=== PATIENT | female | born 1945 ===

== ENCOUNTER 2017-08-23 19:35 | Emergency (ER) | payer MEDICARE, OTHER ==
[2017-08-23 19:35] VITALS: BMI 28.3
[2017-08-23 20:08] VITALS: RESP 20
[2017-08-23] MEDS ORDERED: Sodium Chloride 0.9% 1,000 ML IV ONE (21:01)
--- NOTE | 2017-08-23 21:01 | C.PDOC ---
History Of Present Illness Patient presents to the ER with a complaint of abdominal pain, nausea, vomiting , and diarrhea. Patient reports she is unable to tolerate PO. Denies fever or chills. Time Seen by Provider: 08/23/17 21:01 Chief Complaint (Nursing): GI Problem History Per: Patient History/Exam Limitations: no limitations Onset/Duration Of Symptoms: Hrs Current Symptoms Are (Timing): Still Present Severity: Moderate Pain Scale Rating Of: 4 Location Of Pain/Discomfort: Diffuse Radiation Of Pain To:: None Quality Of Discomfort: Unable To Describe Associated Symptoms: Nausea, Vomiting, Diarrhea. denies: Fever, Chills Exacerbating Factors: None Alleviating Factors: None Recent travel outside of the [place]: No Abnormal Vaginal Bleeding: No Past Medical History Reviewed: Historical Data, Nursing Documentation, Vital Signs Vital Signs: Last Vital Signs Temp 97.9 F 08/23/17 22:40 Pulse 73 08/23/17 22:40 Resp 20 08/23/17 22:40 BP 108/65 08/23/17 22:40 Pulse Ox 99 08/23/17 23:14 - Medical History PMH: Hypothyroidism Surgical History: Tonsillectomy - [facility] Procedures CLOSURE SKIN & SUBCUTANEOUS NEC (07/18/14) INSPECTION OF BLADDER, ENDO (05/26/17) REPOSITION UTERUS, PERCUTANEOUS ENDOSCOPIC APPROACH (05/26/17) REPOSITION VAGINA, PERCUTANEOUS ENDOSCOPIC APPROACH (05/26/17) RESECTION OF BI FALLOPIAN TUBE, VIA OPENING W PERC ENDO (05/26/17) RESECTION OF BILATERAL OVARIES, VIA OPENING W PERC ENDO (05/26/17) RESECTION OF CERVIX, VIA NATURAL OR ARTIFICIAL OPENING (05/26/17) RESECTION OF UTERUS, VIA OPENING W PERC ENDO (05/26/17) ROBOTIC ASSISTED PROCEDURE OF TRUNK, PERC ENDO APPROACH (05/26/17) TETANUS TOXOID ADMINIST (07/18/14) Family History: States: No Known Family Hx - Social History Hx Tobacco Use: No Hx Alcohol Use: No Hx Substance Use: No - Immunization History Hx Tetanus Toxoid Vaccination: No Hx Influenza Vaccination: No Hx Pneumococcal Vaccination: No Review Of Systems Constitutional: Negative for: Fever, Chills Gastrointestinal: Positive for: Nausea, Vomiting, Abdominal Pain, Diarrhea Physical Exam - Physical Exam Appears: Non-toxic Skin: Warm, Dry Head: Normacephalic Oral Mucosa: Moist Chest: Symmetrical, No Tenderness Cardiovascular: Rhythm Regular Respiratory: No Rales, No Rhonchi, No Wheezing Gastrointestinal/Abdominal: Soft, Tenderness (Mild diffuse), No Guarding, No Rebound Neurological/Psych: Oriented x3 ED Course And Treatment - Laboratory Results Result Diagrams: 08/23/17 21:28 08/23/17 21:28 O2 Sat by Pulse Oximetry: 99 (Room air) Pulse Ox Interpretation: Normal Progress Note: Blood work, urinalysis, and flu swab ordered. Pepcid, zofran, and IV fluids administered. Reevaluation Time: 23:44 Reassessment Condition: Improved Disposition Counseled Patient/Family Regarding: Studies Performed, Diagnosis, Need For Followup, Rx Given - Disposition Referrals: [facility] [Outside] [facility] [Outside] Disposition: HOME/ ROUTINE Disposition Time: 21:01 Condition: FAIR Additional Instructions: Please return if symptoms recur. May also use kaopectate for the diarrhea Prescriptions: Ondansetron ODT [Zofran ODT] 1 odt PO BID PRN #10 odt PRN Reason: Nausea/Vomiting Instructions: Acute Nausea and Vomiting (ED), Acute Diarrhea (ED) Forms: [facility] [employer] (American) - Clinical Impression Clinical Impression: Nausea & vomiting, Diarrhea - Scribe Statement The provider has reviewed the documentation as recorded by the Scribnilsa Varghese All medical record entries made by the Scribe were at my direction and personally dictated by me. I have reviewed the chart and agree that the record accurately reflects my personal performance of the history, physical exam, medical decision making, and the department course for this patient. I have also personally directed, reviewed, and agree with the discharge instructions and disposition.
[2017-08-23] MEDS ORDERED: Sodium Chloride 0.9% 1,000 ML ONE (21:32)
[2017-08-23 21:34] LABS: BASO % 0.4 % (0.0-2.0); EOS % 0.2 % (0.0-4.0); HEMOGLOBIN 13.8 g/dL (11.0-16.0); LYMPH # 1.5 K/uL (1.0-4.3); LYMPH % 12.6 % (20.0-40.0); MEAN CELL VOLUME 90.2 fL (81.0-99.0); MEAN CORPUSCULAR HGB CONC 33.3 g/dL (33.0-37.0); MEAN PLATELET VOLUME 9.2 fL (7.2-11.7); MONO # 0.4 K/uL (0.0-0.8); MONO % 3.5 % (0.0-10.0); NEUT % 83.3 % (50.0-75.0); RBC 4.62 Mil/uL (3.80-5.20); RED CELL DISTRIBUTION WIDTH 14.5 % (11.5-14.5)
[2017-08-23 21:47] LABS: ALBUMIN 3.8 g/dL (3.5-5.0); ALT/SGPT 34 U/L (9-52); AST/SGOT 29 U/L (14-36); BLOOD UREA NITROGEN 11 mg/dL (7-17); GFR AFRICAN-AMERICAN > 60; GFR NON-AFRICAN AMERICAN > 60; LIPASE 159 U/L (23-300)
[2017-08-23 23:53] VITALS: BP 115/71; PULSE 69; TEMP 97.6; O2SAT 97
== END 2017-08-24 00:04 | disposition home or self-care (01) ==
LOC: C.ER 19:35
DX: R11.2 Nausea with vomiting, unspecified (principal); R19.7 Diarrhea, unspecified
CPT/HCPCS: 80053; 83690; 85025; 87804; 96374; 96375; 99284; J2405; J7040